=== PATIENT | male | born 1975 | race Caucasian/White ===

== ENCOUNTER 2020-10-28 07:02 | Outpatient (CLI) | payer BC ==
[2020-10-28 07:38] LABS: TOTAL HEMOGLOBIN 16.6 G/dl (14.0-18.0)
== END 2020-10-28 23:59 | disposition home or self-care (01) ==
LOC: RT 07:02
PROVIDERS: ATTEND Internal Medicine
DX: R06.02 Shortness of breath (principal)
CPT/HCPCS: 85018; 94010; 94727; 94729

== ENCOUNTER 2021-02-01 13:33 | Inpatient (IN) | payer BC ==
[~2021-02-01] VITALS: Ht 193 cm; Wt 109.1 kg
[2021-02-01] MEDS ORDERED: CASIRIVIMAB (REGN10933) 1332MG 600 MG, IMDEVIMAB (REGN10987) 1332mg 600 MG in normal sa... IV ONE (14:40)
[2021-02-01] MEDS ORDERED: AZIT500T PO (17:18)
[2021-02-01] MEDS ORDERED: DEXA4TAB67 PO (17:18)
[2021-02-01] MEDS ORDERED: ALBU6.7H9 INH (17:18)
[2021-02-01] MEDS ORDERED: dexamethasone inj 8 MG in normal saline 50ml IV soln 50 ML IV STA (17:25)
--- NOTE | 2021-02-01 17:45 | NUR ---
pt read 3 page info regarding casirivimab, pt consented to receiving medication, he verbalized understanding info about monoclonal medication and had no questions.
--- NOTE | 2021-02-01 19:02 | NUR ---
PT PULSE OX MID 80S ON ROOM, Krishna CLINTON AWARE, PT PLACED ON 6LITERS NASAL CANNULA, PULSEM INCREASED TO 91%, NO RESP DISTRESS, TALKING FULL SENTENCES
[2021-02-01] MEDS ORDERED: normal saline 1000ML IV soln IVB ONE (19:30)
[2021-02-01 19:55] LABS: BASOPHILS % (AUTO) 0.2 % (0-1); EOSINOPHILS % (AUTO) 0 % (0-6); HEMATOCRIT 41.6 % (42.0-52.0); HEMOGLOBIN 14.6 g/dl (14.0-17.9); LYMPHOCYTES # (AUTO) 0.4 X10'3 (1.1-4.8); LYMPHOCYTES % (AUTO) 6.5 % (21-51); MEAN CORPUSCULAR HEMOGLOBIN 29.7 PG (27.0-31.0); MEAN CORPUSCULAR HGB CONC 35.2 g/dL (33.0-36.5); MEAN CORPUSCULAR VOLUME 84.5 FL (78-98); MEAN PLATELET VOLUME 7.5 FL (7.4-10.4); MONOCYTES # (AUTO) 0.6 X10'3 (0-0.9); MONOCYTES % (AUTO) 10.5 % (2-12); NEUTROPHILS # (AUTO) 4.9 X10'3 (1.8-7.7); NEUTROPHILS % (AUTO) 82.8 % (42-75); PLATELET COUNT 269 X10'3 (140-440); RED BLOOD COUNT 4.92 X10'6 (4.70-6.10); RED CELL DISTRIBUTION WIDTH 12.7 % (11.5-14.5)
[2021-02-01 20:07] LABS: ALANINE AMINOTRANSFERASE 51 U/L (12-78); ALBUMIN 3.5 G/DL (3.4-5.0); ALBUMIN/GLOBULIN RATIO 0.9 (1.1-1.5); ALKALINE PHOSPHATASE 71 IU/L (46-116); ANION GAP 9 (8-16); ASPARTATE AMINO TRANSFERASE 62 U/L (10-37); BILIRUBIN,TOTAL 0.5 MG/DL (0.1-1.0); BLOOD UREA NITROGEN 11 MG/DL (7-18); BUN/CREATININE RATIO 9.9 (5.4-32.0); C-REACTIVE PROTEIN 17.74 MG/DL (0.0-0.5); CALCIUM 8.5 MG/DL (8.5-10.1); CHLORIDE 98 MMOL/L (99-107); CREATININE 1.11 MG/DL (0.60-1.10); GLUCOSE 145 MG/DL (70-104); POTASSIUM 3.4 MMOL/L (3.5-5.1); SODIUM 134 MMOL/L (135-145); TOTAL CARBON DIOXIDE 26.6 MMOL/L (24-32); TOTAL PROTEIN 7.6 G/DL (6.4-8.2); eGFR 71 ML/MIN
--- NOTE | 2021-02-01 20:18 | NUR ---
Krishna SAUCEDO AWARE PULSE OX WAS 82 TO 85% ON ROOM AIR, PT FEELING ANXIOUS, PLACED PT BACK ON 6 LITERS NASAL CANNULA. PT ASKING FOR ANXIETY MEDICATION
[2021-02-01] MEDS ORDERED: LORazepam 2 mg/ml vial IV ONE (20:20)
[2021-02-01] MEDS ORDERED: azithromycin/NS 500mg/250ml 250 ML IV ONE (20:20)
[2021-02-01] MEDS ORDERED: temazepam 15mg capsule PO PRN (21:00)
[2021-02-01] MEDS: ALBUTEROL INHALER 1 PUFF/90 MCG INHALER IH PRN (21:03)
--- NOTE | 2021-02-01 22:25 | NUR ---
pt resting quietly, "I feel better", resp even, slightly labored
[2021-02-01] MEDS ORDERED: potassium Cl 40MEQ/1/2NS 520ml 520 ML IV PRN ×2 (23:00)
[2021-02-01] MEDS ORDERED: acetaminophen 325mg tablet PO PRN ×2 (23:00)
[2021-02-01] MEDS ORDERED: magnesium 4gm in 100ml NS 100 ML IV PRN (23:00)
[2021-02-01] MEDS ORDERED: mag hydrox/Alum hydrox/simeth 30ml oral suspension PO PRN (23:00)
[2021-02-01] MEDS ORDERED: magnesium 2GM in 50ml NS 50 ML IV PRN (23:00)
[2021-02-01] MEDS ORDERED: magnesium Cl slow-release 64mg tablet PO PRN (23:00)
[2021-02-01] MEDS ORDERED: magnesium hydroxide 30ml (MOM) UD suspension PO PRN (23:00)
[2021-02-01] MEDS ORDERED: potassium Cl 20 mEq SR tablet PO PRN ×2 (23:00)
[2021-02-01] MEDS ORDERED: REMDESIVIR INJ 200 MG in normal saline 100ml IV soln 60 ML IV ONE (23:05)
[2021-02-01 23:43] LABS: LACTATE DEHYDROGENASE 624 U/L (85-227)
[2021-02-01 23:45] LABS: ABG BASE EXCESS -3.1 mmol/L (-2.0-2.0); ABG HCO3 17.4 mmol/L (22.0-26.0); ABG OXYGEN SATURATION 87.9 % (94-97); ABG PCO2 (T) 21.2 mmHg (35.0-48.0); ABG PO2 (T) 48.1 mmHg (75.0-100.0); ALLEN'S TEST POSITIVE; FCOHb 0.4 % (0.0-3.9); FLOW 6 L/min; FMetHb 0.1 % (0.0-1.5); FO2Hb 87.5 % (94-97); PATIENT TEMPERATURE 36.5; TOTAL HEMOGLOBIN 14.4 G/dl (14.0-18.0)
[2021-02-02 04:27] LABS: BASOPHILS % (AUTO) 0.2 % (0-1); EOSINOPHILS % (AUTO) 0 % (0-6); HEMATOCRIT 40.5 % (42.0-52.0); HEMOGLOBIN 14.2 g/dl (14.0-17.9); LYMPHOCYTES # (AUTO) 0.3 X10'3 (1.1-4.8); LYMPHOCYTES % (AUTO) 4.4 % (21-51); MEAN CORPUSCULAR HEMOGLOBIN 29.2 PG (27.0-31.0); MEAN CORPUSCULAR HGB CONC 35.1 g/dL (33.0-36.5); MEAN CORPUSCULAR VOLUME 83.2 FL (78-98); MEAN PLATELET VOLUME 7.6 FL (7.4-10.4); MONOCYTES # (AUTO) 0.6 X10'3 (0-0.9); MONOCYTES % (AUTO) 10.5 % (2-12); NEUTROPHILS # (AUTO) 5.2 X10'3 (1.8-7.7); NEUTROPHILS % (AUTO) 84.9 % (42-75); PLATELET COUNT 287 X10'3 (140-440); RED BLOOD COUNT 4.86 X10'6 (4.70-6.10); RED CELL DISTRIBUTION WIDTH 12.5 % (11.5-14.5); WHITE BLOOD COUNT 6.1 X10'3 (4.5-11.0)
[2021-02-02 04:38] LABS: D-DIMER 0.65 MG/L FEU (0-0.50)
[2021-02-02 04:44] LABS: ALANINE AMINOTRANSFERASE 50 U/L (12-78); ALBUMIN 3.2 G/DL (3.4-5.0); ALBUMIN/GLOBULIN RATIO 0.8 (1.1-1.5); ALKALINE PHOSPHATASE 67 IU/L (46-116); ANION GAP 11 (8-16); ASPARTATE AMINO TRANSFERASE 64 U/L (10-37); BILIRUBIN,TOTAL 0.5 MG/DL (0.1-1.0); BLOOD UREA NITROGEN 10 MG/DL (7-18); CALCIUM 8.2 MG/DL (8.5-10.1); CHLORIDE 100 MMOL/L (99-107); CREATININE 1.11 MG/DL (0.60-1.10); GLUCOSE 188 MG/DL (70-104); POTASSIUM 3.8 MMOL/L (3.5-5.1); SODIUM 136 MMOL/L (135-145); TOTAL PROTEIN 7.3 G/DL (6.4-8.2); eGFR 71 ML/MIN
--- NOTE | 2021-02-02 07:11 | NUR ---
Patient placed on additional non rebreather @ 15L for SPO2 88% on 15L NC place by RN NOC shift RN Melodie. SPO2 94%, patient assisted to prone position, tolerated well.
[2021-02-02] MEDS ORDERED: CefTRIAXone 2gm/D5W 50ml BAG 50 ML IV SCH (08:00)
[2021-02-02] MEDS ORDERED: heparin, porcine 5000 units/ml vial SQ SCH (08:00)
[2021-02-02] MEDS: K and/or MAG REPLACEMENT MC SCH ×2 (08:20→20:31)
[2021-02-02] MEDS: dexamethasone 4mg/ml inj IV SCH ×2 (08:39→20:27)
[2021-02-02] MEDS: ALBUTEROL INHALER 1 PUFF/90 MCG INHALER IH PRN (08:39)
--- NOTE | 2021-02-02 10:30 | NUR ---
ASSUMED CARE OF PT FROM SHON BASS, PT IS SLEEPING QUIETLY IN DARK ROOM, ON NASAL CANNULA AT 10L AND NRB, NO RESP DISTRESS, SKIN P/W/D,
[2021-02-02] MEDS ORDERED: NO HOME MEDS (10:34)
[2021-02-02] MEDS ORDERED: enoxaparin 30mg/0.3ml syringe SUBCUT ONE (11:40)
--- NOTE | 2021-02-02 12:18 | NUR ---
STAFF WITH INFECTIOUS DISEASE AT BEDSIDE TO EVALUATE PT
--- NOTE | 2021-02-02 13:43 | NUR ---
PT IS RESTING QUIETLY ON GURNEY, RESP EVEN AND UNLABORED, PT STATED HE IS FEELING BETTER, HAS BEEN ON HIGH FLOW NASAL PLACED BY RT, LUNCH TRAY AT BEDSIDE, REFILLED WATER PITCHER, PT HAS DRANK 800ML OF WATER, RAMONA WELL, NO N/V
--- NOTE | 2021-02-02 15:22 | NUR ---
pt is sleeping, resp even and unlabored,
--- NOTE | 2021-02-02 18:34 | NUR ---
PT IS RESTING QUIETLY ON GURNEY, RESP EVEN AND UNLABORED, SKIN P/W/D, TALKING FULL SENTENCES, LUNGS DECREASED BILATERALLY
[2021-02-02] MEDS: REMDESIVIR 100 MG in NS 100ml IVPB IV SCH (20:30)
[2021-02-02] MEDS: lactobacillus rhamnosus 10,000 MMU CELLS/CAPSULE PO SCH (20:30)
--- NOTE | 2021-02-03 02:51 | NUR ---
Patient states he is feeling much better- like he can take deeper breaths. He was in prone position sleeping earlier. Fresh water brought for patient and urinal emptied. No further needs at this time.
[2021-02-03 03:37] LABS: BASOPHILS % (AUTO) 0.1 % (0-1); EOSINOPHILS % (AUTO) 0 % (0-6); HEMATOCRIT 41.5 % (42.0-52.0); HEMOGLOBIN 14.3 g/dl (14.0-17.9); LYMPHOCYTES # (AUTO) 0.4 X10'3 (1.1-4.8); LYMPHOCYTES % (AUTO) 4.7 % (21-51); MEAN CORPUSCULAR HEMOGLOBIN 29.4 PG (27.0-31.0); MEAN CORPUSCULAR HGB CONC 34.4 g/dL (33.0-36.5); MEAN CORPUSCULAR VOLUME 85.5 FL (78-98); MEAN PLATELET VOLUME 7.5 FL (7.4-10.4); MONOCYTES # (AUTO) 1.1 X10'3 (0-0.9); MONOCYTES % (AUTO) 12.5 % (2-12); NEUTROPHILS % (AUTO) 82.7 % (42-75); PLATELET COUNT 327 X10'3 (140-440); RED BLOOD COUNT 4.85 X10'6 (4.70-6.10); RED CELL DISTRIBUTION WIDTH 12.7 % (11.5-14.5); WHITE BLOOD COUNT 8.5 X10'3 (4.5-11.0)
[2021-02-03 03:53] LABS: D-DIMER 0.72 MG/L FEU (0-0.50)
[2021-02-03 04:05] LABS: ALANINE AMINOTRANSFERASE 96 U/L (12-78); ALBUMIN/GLOBULIN RATIO 0.8 (1.1-1.5); ALKALINE PHOSPHATASE 62 IU/L (46-116); ANION GAP 13 (8-16); ASPARTATE AMINO TRANSFERASE 97 U/L (10-37); BILIRUBIN,TOTAL 0.5 MG/DL (0.1-1.0); BLOOD UREA NITROGEN 15 MG/DL (7-18); BUN/CREATININE RATIO 15.5 (5.4-32.0); CHLORIDE 103 MMOL/L (99-107); CREATININE 0.97 MG/DL (0.60-1.10); GLUCOSE 180 MG/DL (70-104); MAGNESIUM 2.5 MG/DL (1.5-2.4); POTASSIUM 4.1 MMOL/L (3.5-5.1); SODIUM 140 MMOL/L (135-145); TOTAL CARBON DIOXIDE 24.5 MMOL/L (24-32); eGFR 83 ML/MIN
[2021-02-03] MEDS: K and/or MAG REPLACEMENT MC SCH ×2 (08:00→19:40)
[2021-02-03] MEDS: lactobacillus rhamnosus 10,000 MMU CELLS/CAPSULE PO SCH ×2 (10:12→19:40)
[2021-02-03] MEDS: dexamethasone 6 MG in NS 50ml IV soln IV SCH ×2 (10:12→19:40)
[2021-02-03] MEDS: metoclopramide 5 mg/ml inj IV PRN (13:06)
--- NOTE | 2021-02-03 16:57 | NUR ---
received report from sal lopez from ed
--- NOTE | 2021-02-03 16:59 | NUR ---
Report given to Ortho/Neuro RN.
[2021-02-03] MEDS ORDERED: loperamide 2mg capsule PO PRN (17:50)
[2021-02-03 18:00] VITALS: BP 159/83
--- NOTE | 2021-02-03 18:22 | NUR ---
gave report to sal meek
[2021-02-03] MEDS: REMDESIVIR 100 MG in NS 100ml IVPB IV SCH (19:40)
[2021-02-03 22:00] VITALS: BP 155/79
[2021-02-03] MEDS: enoxaparin 40mg/0.4ml syringe SUBCUT SCH (22:22)
[2021-02-04 05:01] VITALS: BP 147/88
[2021-02-04] MEDS: K and/or MAG REPLACEMENT MC SCH ×2 (08:00→20:00)
[2021-02-04 08:07] VITALS: BP 160/93
[2021-02-04 08:07] LABS: BASOPHILS % (AUTO) 0.3 % (0-1); EOSINOPHILS % (AUTO) 0 % (0-6); HEMATOCRIT 46.4 % (42.0-52.0); HEMOGLOBIN 15.6 g/dl (14.0-17.9); LYMPHOCYTES # (AUTO) 0.6 X10'3 (1.1-4.8); LYMPHOCYTES % (AUTO) 3.4 % (21-51); MEAN CORPUSCULAR HEMOGLOBIN 28.9 PG (27.0-31.0); MEAN CORPUSCULAR HGB CONC 33.7 g/dL (33.0-36.5); MEAN CORPUSCULAR VOLUME 85.8 FL (78-98); MEAN PLATELET VOLUME 7.4 FL (7.4-10.4); MONOCYTES # (AUTO) 1.8 X10'3 (0-0.9); MONOCYTES % (AUTO) 10.6 % (2-12); NEUTROPHILS # (AUTO) 14.3 X10'3 (1.8-7.7); NEUTROPHILS % (AUTO) 85.7 % (42-75); PLATELET COUNT 458 X10'3 (140-440); RED BLOOD COUNT 5.41 X10'6 (4.70-6.10); RED CELL DISTRIBUTION WIDTH 12.7 % (11.5-14.5); WHITE BLOOD COUNT 16.7 X10'3 (4.5-11.0)
[2021-02-04 08:20] LABS: ALANINE AMINOTRANSFERASE 174 U/L (12-78); ALBUMIN 3.3 G/DL (3.4-5.0); ALBUMIN/GLOBULIN RATIO 0.8 (1.1-1.5); ALKALINE PHOSPHATASE 87 IU/L (46-116); ANION GAP 9 (8-16); ASPARTATE AMINO TRANSFERASE 103 U/L (10-37); BILIRUBIN,TOTAL 0.8 MG/DL (0.1-1.0); BLOOD UREA NITROGEN 21 MG/DL (7-18); BUN/CREATININE RATIO 20.8 (5.4-32.0); CALCIUM 8.8 MG/DL (8.5-10.1); CHLORIDE 104 MMOL/L (99-107); CREATININE 1.01 MG/DL (0.60-1.10); GLUCOSE 224 MG/DL (70-104); MAGNESIUM 2.7 MG/DL (1.5-2.4); POTASSIUM 4.6 MMOL/L (3.5-5.1); SODIUM 140 MMOL/L (135-145); TOTAL CARBON DIOXIDE 27.3 MMOL/L (24-32); TOTAL PROTEIN 7.5 G/DL (6.4-8.2); eGFR 79 ML/MIN
[2021-02-04] MEDS: dexamethasone 6 MG in NS 50ml IV soln IV SCH ×2 (08:50→21:10)
[2021-02-04] MEDS: lactobacillus rhamnosus 10,000 MMU CELLS/CAPSULE PO SCH ×2 (08:51→21:11)
[2021-02-04 09:24] LABS: C-REACTIVE PROTEIN 5.22 MG/DL (0.0-0.5)
[2021-02-04 09:56] LABS: D-DIMER 1.85 MG/L FEU (0-0.50)
[2021-02-04] MEDS: clonazePAM 1mg tablet PO SCH ×2 (12:18→21:10)
[2021-02-04] MEDS: ondansetron/PF 4mg/2ml inj IV PRN ×2 (16:42→22:39)
[2021-02-04 18:00] VITALS: BP 154/93
--- NOTE | 2021-02-04 18:49 | NUR ---
Patient in room ORTHO 4006. I have received report from KALI Juarez and had the opportunity to ask questions and assume patient care.
[2021-02-04] MEDS: metoclopramide 5 mg/ml inj IV PRN (19:41)
[2021-02-04] MEDS: REMDESIVIR 100 MG in NS 100ml IVPB IV SCH (21:10)
[2021-02-04] MEDS: enoxaparin 40mg/0.4ml syringe SUBCUT SCH (21:10)
[2021-02-04 22:00] VITALS: BP 145/86
--- NOTE | 2021-02-04 22:27 | NUR ---
called Dr. Roa for pain medicine for patient, he has severe pain to scrotum no swelling or redness noted at this time and has no pain Meds ordered. [employer] had also called and his oxygen saturations had decreased to 79%on 15 liters HF. I informed of the increased pain and that patient thinks it is from the Decadron that was given. I also told her about the low oxygen saturation and she ordered a stat ABG. She is now on floor seeing patient.
[2021-02-04] MEDS ORDERED: hydrocortisone acetate 25mg rectal suppository RC PRN (22:40)
[2021-02-04 22:47] LABS: ABG BASE EXCESS 0.6 mmol/L (-2.0-2.0); ABG HCO3 22.1 mmol/L (22.0-26.0); ABG OXYGEN SATURATION 92.4 % (94-97); ABG PCO2 (T) 27.7 mmHg (35.0-48.0); ABG PO2 (T) 59.8 mmHg (75.0-100.0); ALLEN'S TEST POSITIVE; FCOHb 0.3 % (0.0-3.9); FMetHb 0.3 % (0.0-1.5); FO2Hb 91.8 % (94-97); PATIENT TEMPERATURE 36.7; TOTAL HEMOGLOBIN 15.8 G/dl (14.0-18.0)
[2021-02-04] MEDS ORDERED: hydrocort. acetate/pramoxine 10gm bottle RC PRN (23:20)
[2021-02-05] VITALS (7 sets, daily range): BP systolic 112–169; BP diastolic 62–101
[2021-02-05] MEDS: morphine 2 MG/ML inj. syringe IV PRN ×2 (01:46→09:05)
[2021-02-05] MEDS: metoclopramide 5 mg/ml inj IV PRN ×2 (02:29→17:31)
[2021-02-05] MEDS: ondansetron/PF 4mg/2ml inj IV PRN ×2 (05:06→20:35)
--- NOTE | 2021-02-05 06:41 | NUR ---
Patient in room ORTHO 4006. I have received report from KALI Onofre and had the opportunity to ask questions and assume patient care.
--- NOTE | 2021-02-05 06:42 | NUR ---
Problems reprioritized. Patient report given, questions answered & plan of care reviewed with KALI Ambrosio.
[2021-02-05 06:52] LABS: BASOPHILS % (AUTO) 0.1 % (0-1); EOSINOPHILS % (AUTO) 0 % (0-6); HEMATOCRIT 42.8 % (42.0-52.0); HEMOGLOBIN 15.2 g/dl (14.0-17.9); LYMPHOCYTES # (AUTO) 0.4 X10'3 (1.1-4.8); LYMPHOCYTES % (AUTO) 2.5 % (21-51); MEAN CORPUSCULAR HEMOGLOBIN 29.6 PG (27.0-31.0); MEAN CORPUSCULAR HGB CONC 35.6 g/dL (33.0-36.5); MEAN CORPUSCULAR VOLUME 83.2 FL (78-98); MEAN PLATELET VOLUME 7.3 FL (7.4-10.4); MONOCYTES # (AUTO) 1.1 X10'3 (0-0.9); MONOCYTES % (AUTO) 6.5 % (2-12); NEUTROPHILS # (AUTO) 15.6 X10'3 (1.8-7.7); NEUTROPHILS % (AUTO) 90.9 % (42-75); PLATELET COUNT 429 X10'3 (140-440); RED BLOOD COUNT 5.14 X10'6 (4.70-6.10); RED CELL DISTRIBUTION WIDTH 12.5 % (11.5-14.5); WHITE BLOOD COUNT 17.2 X10'3 (4.5-11.0)
[2021-02-05 07:22] LABS: ALANINE AMINOTRANSFERASE 144 U/L (12-78); ALBUMIN 3.4 G/DL (3.4-5.0); ALBUMIN/GLOBULIN RATIO 0.9 (1.1-1.5); ALKALINE PHOSPHATASE 85 IU/L (46-116); ANION GAP 11 (8-16); ASPARTATE AMINO TRANSFERASE 56 U/L (10-37); BILIRUBIN,TOTAL 1.3 MG/DL (0.1-1.0); BLOOD UREA NITROGEN 18 MG/DL (7-18); BUN/CREATININE RATIO 16.2 (5.4-32.0); CHLORIDE 102 MMOL/L (99-107); CREATININE 1.11 MG/DL (0.60-1.10); GLUCOSE 241 MG/DL (70-104); MAGNESIUM 2.5 MG/DL (1.5-2.4); POTASSIUM 4.4 MMOL/L (3.5-5.1); SODIUM 138 MMOL/L (135-145); TOTAL CARBON DIOXIDE 25.4 MMOL/L (24-32); TOTAL PROTEIN 7.3 G/DL (6.4-8.2); eGFR 71 ML/MIN
[2021-02-05] MEDS: K and/or MAG REPLACEMENT MC SCH ×2 (08:00→20:00)
[2021-02-05] MEDS: clonazePAM 1mg tablet PO SCH ×2 (09:05→20:07)
[2021-02-05] MEDS: lactobacillus rhamnosus 10,000 MMU CELLS/CAPSULE PO SCH ×2 (09:05→20:07)
[2021-02-05] MEDS: dexamethasone 6 MG in NS 50ml IV soln IV SCH ×2 (09:05→20:08)
--- NOTE | 2021-02-05 09:42 | NUR ---
Page Sent PAGER ID: [phone] MESSAGE: [id number] Regarding [id number] Tish Raymundo Pt unable to keep food/fluids down, medication not working. Please call to discuss changes/plan of care. Thanks!
[2021-02-05] MEDS ORDERED: proMETHazine 25mg tablet PO PRN (10:45)
--- NOTE | 2021-02-05 11:55 | NUR ---
Initial: Pt admit DX COVID-19 and acute respiratory failure per MD note. Advanced to regular diet starting 02/02 though only PO documentation yesterday 02/04 0% vs refusing meals. Noted N/V/D present per EMR. RD d/w RN regarding GI symptoms; RN reports pt currently unable to keep most foods as well as liquids down currently and to discuss w/ MD medication adjustments to help w/ GI issues. ONS not feasible at this time given current PO intolerance. LBM 02/04 x3 yesterday receiving PRN imodium 02/03 though also PRN reglan Q6H for hiccups per EMR. Day 4 poor nutrition at this time; IF pt PO intolerance continues may require PN to meet nutrition needs until EN ensured. Will continue to monitor. Rec: 1. continue regular diet as medically indicated 2. IF PO tolerance improves consider Ensure Enlive TIDWM for protein/kcal needs 3. IF N/V persists and day 7 poor nutrition status; consider PN to meet nutrition needs 4. bowel care per rx; anti-diarrheal per MD 5. scaled wt this admit; subsequent weekly wts Addendum: 02/05/21 at [address] Amended: Links added.
--- NOTE | 2021-02-05 12:37 | NUR ---
Page Sent PAGER ID: [phone] MESSAGE: [id number] Regarding Ekaterina Raymundo- SALMA . DD pending.
[2021-02-05 12:39] LABS: D-DIMER 22.32 MG/L FEU (0-0.50)
--- NOTE | 2021-02-05 12:50 | NUR ---
Page Sent PAGER ID: [phone] MESSAGE: [id number] Regarding [id number] Tish Raymundo DD CRP .
[2021-02-05] MEDS: normal saline 1000ml 1,000 ML IV SCH (13:12)
[2021-02-05] MEDS: baclofen 10mg tablet PO SCH ×2 (15:00→15:11)
--- NOTE | 2021-02-05 16:57 | NUR ---
Page Sent PAGER ID: [phone] MESSAGE: [id number] Regarding [id number], J- Pt Temp 99.9 Ax, unable to keep medications/flds down, antiemetics NOT working, BP continue to be high 169/101. Will provide cooling measures.
[2021-02-05] MEDS ORDERED: acetaminophen 650mg rectal suppository RC PRN (17:15)
--- NOTE | 2021-02-05 18:40 | NUR ---
Problems reprioritized. Patient report given KALI Hasuer questions answered & plan of care reviewed with .
--- NOTE | 2021-02-05 18:59 | NUR ---
Patient in room ORTHO 4006. I have received report from Raquel BASS and had the opportunity to ask questions and assume patient care.
[2021-02-05] MEDS: REMDESIVIR 100 MG in NS 100ml IVPB IV SCH (20:08)
[2021-02-05] MEDS: enoxaparin 40mg/0.4ml syringe SUBCUT SCH (20:08)
--- NOTE | 2021-02-05 21:27 | NUR ---
Page sent to about increased D-dimer from 1.85 to 22.32. Patient on 15L high flow but saturations in 80's. Placed nonrebreather. Oxygen saturations in mid 90's now.
[2021-02-05] MEDS ORDERED: iohexol 350MG/ML 100ml bottle IV ONE (22:40)
--- NOTE | 2021-02-05 23:42 | NUR ---
Patient down to CT scan
[2021-02-06] MEDS: metoclopramide 5 mg/ml inj IV PRN (00:06)
[2021-02-06] MEDS: baclofen 10mg tablet PO SCH ×4 (00:06→23:28)
[2021-02-06] MEDS: normal saline 1000ml 1,000 ML IV SCH (00:06)
[2021-02-06] MEDS ORDERED: heparin 10,000 units/1 ML INJ IV ONE (00:30)
[2021-02-06] MEDS: heparin 25,000 UNIT/250ml bag 250 ML IV SCH ×3 (01:52→17:30)
[2021-02-06 02:00] VITALS: BP 170/94
--- NOTE | 2021-02-06 02:16 | NUR ---
late entry - 0100 awaiting results from CTA. noted Dr. Roa placed orders for heparin drip "IF pt has positive CT scan for PE" per luis Almaguer RN. results were inconclusive per CTA report. Dr. Roa returned call at 0140 to do a stat VQ scan and transfer to Tele floor. "pt needs a higher level of care." Per perioperative educator at 0143 -unable to do VQ scan at night but will be scheduled first thing in am. asked about repeating CTA - unable to repeat CTA b/c pt received contrast. have to wait for 12 hours. Informed MD that VQ cannot happen stat, and that there were no beds on tele but that we can do heparin drip on this floor. refused to change transfer orders. notified Electrification Adviser Kulwinder about transfer request. Kulwinder talked to Dr. Roa and explained level of care appropriate here for heparin. agreed to allow to stay but would not change orders in computer. 0200 started heparin drip. continue to monitor patient closely.
--- NOTE | 2021-02-06 05:19 | NUR ---
[employer] has called multiple times tonight. Patient keeps taking his oxygen off in his sleep. Patient will drop in low 70's without oxygen. Patient was found multiple times to have taken off his oxygen to use the commode. 15L High flow nasal cannula replaced and non rebreather each time telemetry monitor called. Patient's oxygen saturation would recover to low 90's. Educated patient on importance of keeping the oxygen on.
--- NOTE | 2021-02-06 06:34 | NUR ---
Problems reprioritized. Patient report given, questions answered & plan of care reviewed with Florencio BASS.
[2021-02-06 07:00] VITALS: BP 154/88
[2021-02-06 07:09] LABS: BASOPHILS % (AUTO) 0.2 % (0-1); EOSINOPHILS % (AUTO) 0 % (0-6); HEMOGLOBIN 14.8 g/dl (14.0-17.9); LYMPHOCYTES # (AUTO) 0.4 X10'3 (1.1-4.8); MEAN CORPUSCULAR HEMOGLOBIN 29.4 PG (27.0-31.0); MEAN CORPUSCULAR HGB CONC 34.4 g/dL (33.0-36.5); MEAN CORPUSCULAR VOLUME 85.4 FL (78-98); MEAN PLATELET VOLUME 7.8 FL (7.4-10.4); MONOCYTES # (AUTO) 0.5 X10'3 (0-0.9); MONOCYTES % (AUTO) 3.9 % (2-12); NEUTROPHILS # (AUTO) 12.2 X10'3 (1.8-7.7); NEUTROPHILS % (AUTO) 92.9 % (42-75); PLATELET COUNT 342 X10'3 (140-440); RED BLOOD COUNT 5.03 X10'6 (4.70-6.10); WHITE BLOOD COUNT 13.2 X10'3 (4.5-11.0)
[2021-02-06 07:28] LABS: ALANINE AMINOTRANSFERASE 89 U/L (12-78); ALBUMIN 2.8 G/DL (3.4-5.0); ALBUMIN/GLOBULIN RATIO 0.7 (1.1-1.5); ALKALINE PHOSPHATASE 76 IU/L (46-116); ANION GAP 10 (8-16); ASPARTATE AMINO TRANSFERASE 44 U/L (10-37); BILIRUBIN,TOTAL 0.8 MG/DL (0.1-1.0); BLOOD UREA NITROGEN 16 MG/DL (7-18); C-REACTIVE PROTEIN 24.95 MG/DL (0.0-0.5); CALCIUM 8.5 MG/DL (8.5-10.1); CHLORIDE 102 MMOL/L (99-107); GLUCOSE 186 MG/DL (70-104); MAGNESIUM 2.7 MG/DL (1.5-2.4); POTASSIUM 4.6 MMOL/L (3.5-5.1); SODIUM 135 MMOL/L (135-145); TOTAL CARBON DIOXIDE 23.4 MMOL/L (24-32); eGFR 80 ML/MIN
[2021-02-06] MEDS: dexamethasone 6 MG in NS 50ml IV soln IV SCH (07:38)
[2021-02-06] MEDS: lactobacillus rhamnosus 10,000 MMU CELLS/CAPSULE PO SCH ×2 (07:38→20:11)
[2021-02-06] MEDS: clonazePAM 1mg tablet PO SCH ×2 (07:39→20:11)
[2021-02-06] MEDS: K and/or MAG REPLACEMENT MC SCH ×2 (08:00→20:00)
[2021-02-06 09:29] LABS: D-DIMER 22.75 MG/L FEU (0-0.50)
--- NOTE | 2021-02-06 09:40 | NUR ---
PAGER ID: [phone] MESSAGE: Ann [phone] - re [id number] Breanne. BP is 175/103. Any new orders?
[2021-02-06 10:00] VITALS: BP 175/103
[2021-02-06] MEDS: heparin 10,000 units/1 ML INJ IV PRN ×2 (10:33→17:28)
[2021-02-06] MEDS: hydrALAZINE 20mg/ml inj. IV PRN (10:36)
[2021-02-06] MEDS: methylPREDNISolone sod succ/PF 40mg inj. IV SCH ×2 (17:29→23:28)
[2021-02-06] MEDS: HYDROcodone/acetaminophen 10/325mg tab PO PRN ×2 (17:29→23:29)
[2021-02-06 18:00] VITALS: BP 124/71
--- NOTE | 2021-02-06 18:39 | NUR ---
Patient in room ORTHO 4006. I have received report from Florencio BASS and had the opportunity to ask questions and assume patient care.
[2021-02-06 22:00] VITALS: BP 129/94
[2021-02-07 02:00] VITALS: BP 125/89
[2021-02-07] MEDS: heparin 25,000 UNIT/250ml bag 250 ML IV SCH ×2 (02:02→12:44)
[2021-02-07 06:10] VITALS: BP 148/80
--- NOTE | 2021-02-07 06:25 | NUR ---
Problems reprioritized. Patient report given, questions answered & plan of care reviewed with Madison BASS.
[2021-02-07 06:33] LABS: C-REACTIVE PROTEIN 10.97 MG/DL (0.0-0.5); MAGNESIUM 2.7 MG/DL (1.5-2.4)
[2021-02-07 06:43] LABS: BASOPHILS % (AUTO) 0.1 % (0-1); EOSINOPHILS % (AUTO) 0 % (0-6); HEMATOCRIT 41.7 % (42.0-52.0); HEMOGLOBIN 14.4 g/dl (14.0-17.9); LYMPHOCYTES # (AUTO) 0.4 X10'3 (1.1-4.8); LYMPHOCYTES % (AUTO) 2.5 % (21-51); MEAN CORPUSCULAR HEMOGLOBIN 29.7 PG (27.0-31.0); MEAN CORPUSCULAR HGB CONC 34.7 g/dL (33.0-36.5); MEAN CORPUSCULAR VOLUME 85.7 FL (78-98); MEAN PLATELET VOLUME 8.2 FL (7.4-10.4); MONOCYTES # (AUTO) 0.7 X10'3 (0-0.9); MONOCYTES % (AUTO) 4.8 % (2-12); NEUTROPHILS # (AUTO) 14.1 X10'3 (1.8-7.7); NEUTROPHILS % (AUTO) 92.6 % (42-75); PLATELET COUNT 496 X10'3 (140-440); RED BLOOD COUNT 4.86 X10'6 (4.70-6.10); RED CELL DISTRIBUTION WIDTH 12.9 % (11.5-14.5); WHITE BLOOD COUNT 15.2 X10'3 (4.5-11.0)
--- NOTE | 2021-02-07 06:45 | NUR ---
Patient in room ORTHO 4006. I have received report from Analisa BASS and had the opportunity to ask questions and assume patient care.
[2021-02-07] MEDS: lactobacillus rhamnosus 10,000 MMU CELLS/CAPSULE PO SCH ×2 (07:20→20:35)
[2021-02-07] MEDS: baclofen 10mg tablet PO SCH ×3 (07:20→23:28)
[2021-02-07] MEDS: clonazePAM 1mg tablet PO SCH ×2 (07:20→20:35)
[2021-02-07] MEDS: methylPREDNISolone sod succ/PF 40mg inj. IV SCH ×3 (07:20→23:28)
[2021-02-07 07:54] LABS: TOTAL CELLS COUNTED 100
[2021-02-07 07:55] LABS: PLATELET ESTIMATE INCREASED; POIKILOCYTOSIS FEW
[2021-02-07] MEDS: K and/or MAG REPLACEMENT MC SCH ×2 (08:00→20:00)
[2021-02-07 09:26] LABS: D-DIMER 5.59 MG/L FEU (0-0.50)
[2021-02-07 10:00] VITALS: BP 158/95
[2021-02-07] MEDS ORDERED: iohexol 350MG/ML 100ml bottle IV ONE (11:31)
--- NOTE | 2021-02-07 13:08 | NUR ---
RECEIVED REPORT FROM JUSTIN BASS AND ASSUMED PATIENT CARE
--- NOTE | 2021-02-07 16:00 | NUR ---
Problems reprioritized. Patient report given, questions answered & plan of care reviewed with Dorita Mariano.
[2021-02-07] MEDS: HYDROcodone/acetaminophen 10/325mg tab PO PRN (16:49)
[2021-02-07 18:00] VITALS: BP 139/79
[2021-02-07] MEDS: enoxaparin 100mg/ml syringe SUBCUT SCH (20:35)
--- NOTE | 2021-02-07 21:21 | NUR ---
pt states "I feel like I've turned a corner. I think I'm doing better" no distress breathing with HF 15L. lungs clear
[2021-02-07 22:00] VITALS: BP 153/88
[2021-02-08] MEDS ORDERED: lansoprazole 15mg solutab PO ONE (05:50)
--- NOTE | 2021-02-08 05:56 | NUR ---
0500 still c/o heartburn. [facility] [place] [place] call - requested tums per pt. MD declined "tums can cause constipation and pt has hemmerhoid. prilosec ordered instead. awaiting from pharmacy.
[2021-02-08 06:00] VITALS: BP 149/78
[2021-02-08 06:47] LABS: HEMOGLOBIN 15.2 g/dl (14.0-17.9); MEAN CORPUSCULAR VOLUME 85.7 FL (78-98); MEAN PLATELET VOLUME 7.7 FL (7.4-10.4); PLATELET COUNT 534 X10'3 (140-440); WHITE BLOOD COUNT 15.7 X10'3 (4.5-11.0)
[2021-02-08 06:49] LABS: HEMATOCRIT 44.8 % (42.0-52.0); MEAN CORPUSCULAR HEMOGLOBIN 29.2 PG (27.0-31.0); RED BLOOD COUNT 5.23 X10'6 (4.70-6.10); RED CELL DISTRIBUTION WIDTH 12.6 % (11.5-14.5)
[2021-02-08 06:57] LABS: D-DIMER 4.23 MG/L FEU (0-0.50)
[2021-02-08 07:12] LABS: ALANINE AMINOTRANSFERASE 94 U/L (12-78); ALBUMIN 2.8 G/DL (3.4-5.0); ALBUMIN/GLOBULIN RATIO 0.7 (1.1-1.5); ALKALINE PHOSPHATASE 86 IU/L (46-116); ANION GAP 7 (8-16); ASPARTATE AMINO TRANSFERASE 22 U/L (10-37); BILIRUBIN,TOTAL 0.6 MG/DL (0.1-1.0); BLOOD UREA NITROGEN 24 MG/DL (7-18); BUN/CREATININE RATIO 23.8 (5.4-32.0); C-REACTIVE PROTEIN 4.26 MG/DL (0.0-0.5); CALCIUM 8.7 MG/DL (8.5-10.1); CHLORIDE 101 MMOL/L (99-107); CREATININE 1.01 MG/DL (0.60-1.10); GLUCOSE 299 MG/DL (70-104); MAGNESIUM 2.9 MG/DL (1.5-2.4); POTASSIUM 4.3 MMOL/L (3.5-5.1); SODIUM 134 MMOL/L (135-145); TOTAL CARBON DIOXIDE 25.6 MMOL/L (24-32); eGFR 79 ML/MIN
[2021-02-08 07:47] LABS: TOTAL CELLS COUNTED 100
[2021-02-08 07:48] LABS: LARGE PLATELETS FEW; PLATELET ESTIMATE INCREASED
[2021-02-08] MEDS: K and/or MAG REPLACEMENT MC SCH ×2 (08:00→20:00)
[2021-02-08] MEDS: clonazePAM 1mg tablet PO SCH ×2 (09:33→21:30)
[2021-02-08] MEDS: lactobacillus rhamnosus 10,000 MMU CELLS/CAPSULE PO SCH ×2 (09:33→21:30)
[2021-02-08] MEDS: methylPREDNISolone sod succ/PF 40mg inj. IV SCH ×2 (09:33→17:09)
[2021-02-08] MEDS: baclofen 10mg tablet PO SCH ×3 (09:34→17:10)
[2021-02-08 10:30] VITALS: BP 158/100
[2021-02-08 14:30] VITALS: BP 162/94
--- NOTE | 2021-02-08 15:22 | NUR ---
Patient has a very angry attitude. States that nobody explains anything to him. I myself spent an hour in his room this am. Dr Stein came in the room prior to my departure. Patient finally stopped talking over her and appeared to listen. was pleasant to myself after that. NA went in the room later, he was yelling that nobody explains anything and cussing at her. She politely left the room and advised me she did not clean the room up like she had planned because of the language and aggressive attitude. cable mock up assembler aware.
--- NOTE | 2021-02-08 15:54 | NUR ---
Reassessment: Pt PO improving on regular diet PO 75-100% dinner last night, dinner 02/06, and 25% breakfast this AM up from prior 0% intake first 5 days of admit though other meals 02/07 not documented so unsure of true intake hx. Remains SOB on high flow 15L/min per EMR; likely impacting PO intake. RD d/w RN regarding LBM 02/06 w/ no GI symptoms at this time per EMR. RD d/w RN regarding ONS supplementation; RN reports pt drinks smoothie from but likely not ONS. Will send smoothies TIDWM for additional kcals; dietary notified. Noted Glu 299mg/dl today; RD d/w RN regarding glycemic protocol if MD agreeable. Will continue to monitor PO trends and additional protein/kcal needs this admit. Rec: 1. continue regular diet; encourage PO intake 2. smoothies TIDWM for additional kcals 3. bowel care per rx; anti-diarrheal per MD 4. scaled wt this admit; subsequent weekly wts Addendum: 02/08/21 at [address] Amended: Links added.
[2021-02-08] MEDS: vancomycin/NS 1 GM ADD-VANTAGE 250 ML IV SCH ×2 (17:09→21:31)
[2021-02-08] MEDS: HYDROcodone/acetaminophen 10/325mg tab PO PRN (17:10)
[2021-02-08] MEDS: calcium carbonate 500mg chew tablet PO SCH (17:10)
--- NOTE | 2021-02-08 18:23 | NUR ---
Report to Elidia BASS
--- NOTE | 2021-02-08 18:24 | NUR ---
bedside report outside the room. pt refused VS wants to sleep at this time
--- NOTE | 2021-02-08 18:45 | NUR ---
lab called and requested new sputum sample. "i only found mixed abdoul and lots of epithelial cells." lab will run culture and report if anything grows from the incubator. mirza already started so will not try to collect another sample.
[2021-02-08] MEDS: enoxaparin 100mg/ml syringe SUBCUT SCH (21:30)
[2021-02-08] MEDS: hydrALAZINE 20mg/ml inj. IV PRN (21:48)
[2021-02-08 22:00] VITALS: BP 187/97
--- NOTE | 2021-02-08 23:11 | NUR ---
hydralazine given for elevated BP. pt still desats with movement.
[2021-02-09] MEDS: methylPREDNISolone sod succ/PF 40mg inj. IV SCH ×3 (00:50→16:13)
[2021-02-09 00:59] VITALS: BP 151/95
[2021-02-09] MEDS: baclofen 10mg tablet PO SCH ×4 (02:30→16:13)
[2021-02-09] MEDS: vancomycin/NS 1 GM ADD-VANTAGE 250 ML IV SCH ×2 (05:55→12:50)
[2021-02-09 06:05] VITALS: BP 167/92
--- NOTE | 2021-02-09 06:05 | NUR ---
received report from sal marcelo
--- NOTE | 2021-02-09 06:06 | NUR ---
reported to days. noted pt frustrated with solumedrol effects of labile temperament and anxiety and severe heart burn.
[2021-02-09 07:12] LABS: BASOPHILS % (AUTO) 0 % (0-1); EOSINOPHILS % (AUTO) 0.1 % (0-6); HEMATOCRIT 45.8 % (42.0-52.0); HEMOGLOBIN 15.5 g/dl (14.0-17.9); LYMPHOCYTES # (AUTO) 0.3 X10'3 (1.1-4.8); LYMPHOCYTES % (AUTO) 2.2 % (21-51); MEAN CORPUSCULAR HEMOGLOBIN 28.8 PG (27.0-31.0); MEAN CORPUSCULAR HGB CONC 33.8 g/dL (33.0-36.5); MEAN CORPUSCULAR VOLUME 85.2 FL (78-98); MEAN PLATELET VOLUME 7.8 FL (7.4-10.4); MONOCYTES # (AUTO) 0.9 X10'3 (0-0.9); MONOCYTES % (AUTO) 6.6 % (2-12); NEUTROPHILS # (AUTO) 12.8 X10'3 (1.8-7.7); NEUTROPHILS % (AUTO) 91.1 % (42-75); PLATELET COUNT 501 X10'3 (140-440); RED BLOOD COUNT 5.37 X10'6 (4.70-6.10); RED CELL DISTRIBUTION WIDTH 12.6 % (11.5-14.5)
[2021-02-09] MEDS: enoxaparin 100mg/ml syringe SUBCUT SCH (07:16)
[2021-02-09] MEDS: CefTRIAXone 2gm/D5W 50ml BAG 50 ML IV SCH (07:16)
[2021-02-09 07:17] LABS: D-DIMER 3.86 MG/L FEU (0-0.50)
[2021-02-09] MEDS: lactobacillus rhamnosus 10,000 MMU CELLS/CAPSULE PO SCH (07:19)
[2021-02-09] MEDS: hydrALAZINE 20mg/ml inj. IV PRN (07:19)
[2021-02-09] MEDS: clonazePAM 1mg tablet PO SCH ×2 (07:19→20:18)
[2021-02-09 07:24] LABS: ALANINE AMINOTRANSFERASE 76 U/L (12-78); ALBUMIN 2.7 G/DL (3.4-5.0); ALBUMIN/GLOBULIN RATIO 0.6 (1.1-1.5); ALKALINE PHOSPHATASE 90 IU/L (46-116); ANION GAP 8 (8-16); ASPARTATE AMINO TRANSFERASE 27 U/L (10-37); BILIRUBIN,TOTAL 0.7 MG/DL (0.1-1.0); BLOOD UREA NITROGEN 21 MG/DL (7-18); BUN/CREATININE RATIO 21.4 (5.4-32.0); C-REACTIVE PROTEIN 2.21 MG/DL (0.0-0.5); CALCIUM 8.4 MG/DL (8.5-10.1); CHLORIDE 102 MMOL/L (99-107); CREATININE 0.98 MG/DL (0.60-1.10); GLUCOSE 281 MG/DL (70-104); POTASSIUM 4.5 MMOL/L (3.5-5.1); SODIUM 136 MMOL/L (135-145); TOTAL CARBON DIOXIDE 26.4 MMOL/L (24-32); eGFR 82 ML/MIN
[2021-02-09] MEDS: calcium carbonate 500mg chew tablet PO SCH ×3 (07:36→17:19)
[2021-02-09] MEDS: K and/or MAG REPLACEMENT MC SCH ×2 (07:36→20:00)
[2021-02-09 08:02] LABS: PLATELET ESTIMATE INCREASED; TOTAL CELLS COUNTED 100
[2021-02-09] MEDS ORDERED: VANCOMYCIN LEVEL IV ONE (12:30)
--- NOTE | 2021-02-09 14:00 | NUR ---
PT IS CURRENTLY REFUSING TO HAVE VS TAKEN AT THIS TIME CONTINUE TO MONITOR
--- NOTE | 2021-02-09 15:45 | NUR ---
pt complaining of not being able to breathe and that his diaphragm is locking up, pt tells me that 'the vanco is killing me' and that he 'cannot breathe because of the vanco', pt complaining of not getting enough rest, asking for nursing staff not to bother him for the next 9 hours and that he would like to take his nighttime meds of baclofin, norco and sleeping pill early spoke w/hospitalist, hospitalist aware of pt refusal of vanco, hospitalist said it is ok to take nighttime meds early but it is unrealistic to leave the patient alone for the next 9 hours i updated pt with the hospitalist reply
--- NOTE | 2021-02-09 16:04 | NUR ---
notified dr. cintron of pt verbal refusal to take vanco any more during his hospital stay, no new orders at this time
[2021-02-09] MEDS: HYDROcodone/acetaminophen 10/325mg tab PO PRN (16:14)
--- NOTE | 2021-02-09 16:22 | NUR ---
scanner on computer not scanning meds into Novavax, checked all meds prior to admin
[2021-02-09 17:32] VITALS: BP 106/67
--- NOTE | 2021-02-09 17:36 | NUR ---
EARLIER IN SHIFT I NOTIFIED PT THAT HOSPITALIST WOULD LIKE TO OBTAIN ANOTHER SPUTUM SAMPLE IF POSSIBLE, PT TOLD ME THAT HE WILL NOT BE ABLE TO PRODUCE A SPUTUM SAMPLE, LEFT CONTAINER FOR SAMPLE IN ROOM IF PT CHANGES HIS MIND, CONTINUE TO EDUCATE
--- NOTE | 2021-02-09 18:09 | NUR ---
GAVE REPORT TO September,
[2021-02-09] MEDS: VANCOmycin 1250MG/NS 250ml Bag 250 ML IV SCH (21:00)
[2021-02-09 21:30] VITALS: BP 138/99
[2021-02-10] MEDS: baclofen 10mg tablet PO SCH ×2 (00:41→09:46)
[2021-02-10] MEDS: methylPREDNISolone sod succ/PF 40mg inj. IV SCH ×2 (00:41→09:46)
[2021-02-10 01:20] VITALS: BP 144/88
[2021-02-10] MEDS: VANCOmycin 1250MG/NS 250ml Bag 250 ML IV SCH ×2 (05:00→13:00)
[2021-02-10 05:53] VITALS: BP 151/108
[2021-02-10 06:29] LABS: MEAN CORPUSCULAR HEMOGLOBIN 29.3 PG (27.0-31.0); MEAN CORPUSCULAR HGB CONC 34.6 g/dL (33.0-36.5); MEAN CORPUSCULAR VOLUME 84.8 FL (78-98); MEAN PLATELET VOLUME 7.6 FL (7.4-10.4); PLATELET COUNT 543 X10'3 (140-440); RED BLOOD COUNT 5.78 X10'6 (4.70-6.10); RED CELL DISTRIBUTION WIDTH 12.6 % (11.5-14.5); WHITE BLOOD COUNT 15.1 X10'3 (4.5-11.0)
[2021-02-10 06:42] LABS: D-DIMER 3.31 MG/L FEU (0-0.50)
[2021-02-10 06:56] LABS: ALANINE AMINOTRANSFERASE 83 U/L (12-78); ALBUMIN/GLOBULIN RATIO 0.7 (1.1-1.5); ALKALINE PHOSPHATASE 82 IU/L (46-116); ANION GAP 12 (8-16); ASPARTATE AMINO TRANSFERASE 27 U/L (10-37); BILIRUBIN,TOTAL 0.8 MG/DL (0.1-1.0); BLOOD UREA NITROGEN 23 MG/DL (7-18); BUN/CREATININE RATIO 21.7 (5.4-32.0); C-REACTIVE PROTEIN 1.76 MG/DL (0.0-0.5); CALCIUM 9.5 MG/DL (8.5-10.1); CHLORIDE 100 MMOL/L (99-107); CREATININE 1.06 MG/DL (0.60-1.10); GLUCOSE 284 MG/DL (70-104); POTASSIUM 4.7 MMOL/L (3.5-5.1); SODIUM 136 MMOL/L (135-145); TOTAL CARBON DIOXIDE 24.5 MMOL/L (24-32); TOTAL PROTEIN 7.3 G/DL (6.4-8.2); eGFR 75 ML/MIN
--- NOTE | 2021-02-10 07:00 | NUR ---
Patient in room ORTHO 4006. I have received report from tiny rn and had the opportunity to ask questions and assume patient care.
[2021-02-10] MEDS ORDERED: pantoprazole 40mg Tablet.DR PO SCH (07:30)
[2021-02-10 07:46] LABS: PLATELET ESTIMATE INCREASED; TOTAL CELLS COUNTED 100
[2021-02-10] MEDS: K and/or MAG REPLACEMENT MC SCH (08:00)
[2021-02-10] MEDS: CefTRIAXone 2gm/D5W 50ml BAG 50 ML IV SCH (09:46)
[2021-02-10] MEDS: clonazePAM 1mg tablet PO SCH (09:46)
[2021-02-10] MEDS: enoxaparin 100mg/ml syringe SUBCUT SCH (09:46)
[2021-02-10] MEDS: calcium carbonate 500mg chew tablet PO SCH ×2 (09:46→12:30)
[2021-02-10] MEDS: HYDROcodone/acetaminophen 10/325mg tab PO PRN (09:49)
[2021-02-10 10:56] VITALS: BP 157/114
[2021-02-10 11:10] VITALS: BP_SYST 157
[2021-02-10] MEDS: hydrALAZINE 20mg/ml inj. IV PRN (11:10)
--- NOTE | 2021-02-10 12:04 | NUR ---
O2 Sat at rest on room air:__untested due to shortness of breath_% If below 89%: Recovery O2 Sat at rest on __5_LPM:___%:_87__% via__nc (mask/nasal cannula, etc..) No further documentation is necessary. If O2 Sat did not drop below 89% on room air,ambulate patient on room air. O2 Sat while ambulating on room air:___% Recovery O2 Sat while ambulating on ___LPM:___% No further documentation is necessary. If patient does not drop below 89% while ambulating, he/she does not qualify for home O2.
--- NOTE | 2021-02-10 12:37 | NUR ---
O2 Sat at rest on room air:_79__% If below 89%: Recovery O2 Sat at rest on __5_LPM:___%:__90_% via nasal cannula___(mask/nasal cannula, etc..) No further documentation is necessary. If O2 Sat did not drop below 89% on room air,ambulate patient on room air. O2 Sat while ambulating on room air:___% Recovery O2 Sat while ambulating on ___LPM:___% No further documentation is necessary. If patient does not drop below 89% while ambulating, he/she does not qualify for home O2.
[2021-02-10] MEDS ORDERED: LINE600T11 PO (13:03)
[2021-02-10] MEDS ORDERED: PRED10TA23 PO (13:03)
[2021-02-10] MEDS ORDERED: ALBU6.7H9 IH (13:03)
[2021-02-10] MEDS ORDERED: APIX5TAB3 PO (13:03)
--- NOTE | 2021-02-10 17:50 | NUR ---
PT DISCHARGED IN STABLE CONDITION IN PRIVATE VEHICLE WITH . 2 IV DC, CANULAS INTACT. FOLLOW UP INSTRUCTIONS GIVEN, PT AWARE THAT IF SYMPTOMS GET WORSE HE NEEDS TO CALL 911 OR RETURN TO THE ER. PT HAS 2 02 TANKS FOR DC. MAINTAINING 94% ON 5L. ALL BELONGINGS IN HAND. ALL QUESTIONS ANSWERED. Addendum: 02/10/21 at 1752 by Bethanie Thompson RN Amended: Links added.
[2021-02-10] MEDS ORDERED: VANCOMYCIN LEVEL IV ONE (20:30)
== END 2021-02-10 16:42 | disposition home or self-care (01) | DRG 177 ==
LOC: ER 13:33 → ED HOLD 23:01 → ORTHO 4S 02-03 17:17
PROVIDERS: ADMIT Internal Medicine; ATTEND Internal Medicine
PROC: XW033E5 Introduction of Remdesivir Anti-infective into Peripheral Vein, Percutaneous Approach, New Technology Group 5 (ICD-10-PCS; principal; 2021-02-01)
PROC: 5A0955A Assistance with Respiratory Ventilation, Greater than 96 Consecutive Hours, High Flow/Velocity Cannula (ICD-10-PCS; 2021-02-03)
PROC: B32T1ZZ Computerized Tomography (CT Scan) of Left Pulmonary Artery using Low Osmolar Contrast (ICD-10-PCS; 2021-02-05)
PROC: B3201ZZ Computerized Tomography (CT Scan) of Thoracic Aorta using Low Osmolar Contrast (ICD-10-PCS; 2021-02-05)
PROC: B32S1ZZ Computerized Tomography (CT Scan) of Right Pulmonary Artery using Low Osmolar Contrast (ICD-10-PCS; 2021-02-05)
PROC: CB121ZZ Planar Nuclear Medicine Imaging of Lungs and Bronchi using Technetium 99m (Tc-99m) (ICD-10-PCS; 2021-02-06)
PROC: B32T1ZZ Computerized Tomography (CT Scan) of Left Pulmonary Artery using Low Osmolar Contrast (ICD-10-PCS; 2021-02-07)
PROC: B3201ZZ Computerized Tomography (CT Scan) of Thoracic Aorta using Low Osmolar Contrast (ICD-10-PCS; 2021-02-07)
PROC: B32S1ZZ Computerized Tomography (CT Scan) of Right Pulmonary Artery using Low Osmolar Contrast (ICD-10-PCS; 2021-02-07)
DX: U07.1 COVID-19 (principal); J12.82 Pneumonia due to coronavirus disease 2019; J15.9 Unspecified bacterial pneumonia; J96.01 Acute respiratory failure with hypoxia; E87.1 Hypo-osmolality and hyponatremia; R19.7 Diarrhea, unspecified; R74.01 Elevation of levels of liver transaminase levels; E87.6 Hypokalemia; F41.9 Anxiety disorder, unspecified; Z79.01 Long term (current) use of anticoagulants; Z79.899 Other long term (current) drug therapy
CPT/HCPCS: 36415; 36600; 71045; 71275; 78580; 80053; 80202; 82803; 83615; 83735; 84145; 84484; 85007; 85018; 85025; 85379; 85730; 86140; 87205; 87635; 93005; 94760; 96365; 96366; 96368; 96375; 99291; A9540; C9803; G0378; J0360; J0456; J0696; J1100; J1644; J1650; J2060; J2270; J2405; J2765; J2920; J3370; J7030; M0243; Q0169; Q0243; Q9967

== ENCOUNTER 2024-06-07 02:03 | Emergency (ER) | payer BC, MEDICAID ==
[~2024-06-07] VITALS: Ht 193 cm; Wt 111.4 kg
[~2024-06-07 02:03] MED LIST: ALBU6.7H14 IH; APIX5TAB3 PO
[2024-06-07 03:03] VITALS: TEMP 97.9
[2024-06-07] MEDS: benzonatate 100mg capsule PO ONE (03:27)
[2024-06-07] MEDS: ibuprofen tablet 400 MG TABLET PO ONE (03:27)
[2024-06-07] MEDS: acetaminophen 325mg tablet PO ONE (03:28)
[2024-06-07] MEDS ORDERED: BENZ-38 PO (03:58)
[2024-06-07] MEDS ORDERED: AZIT-164 PO (03:58)
[2024-06-07] MEDS ORDERED: PRED20TA PO (03:58)
[2024-06-07 04:03] VITALS: BP 145/72; PULSE 75; RESP 16; O2SAT 98
[2024-06-07] MEDS: azithromycin 250mg tablet PO ONE (04:09)
[2024-06-07] MEDS: dexamethasone 4mg tablet PO ONE (04:10)
== END 2024-06-07 04:15 | disposition home or self-care (01) ==
LOC: ER 02:04
DX: R05.9 Cough, unspecified (principal); J00 Acute nasopharyngitis [common cold]; R68.89 Other general symptoms and signs; Z79.899 Other long term (current) drug therapy; Z20.822 Contact with and (suspected) exposure to COVID-19
CPT/HCPCS: 36415; 71045; 87502; 87503; 87811; 99284